=== PATIENT | male | born 1990 | race Caucasian/White ===

== ENCOUNTER 2020-05-02 19:31 | Emergency (ER) | payer OTHER, SELFPAY ==
--- NOTE | ~2020-05-02 | XR_ITS ---
XR ankle LT min 3V, XR tibia fibula LT 2V 05/02/2020 20:23 (accession [id number]), 05/02/2020 20:22 (accession [id number]) INDICATION: Left leg and ankle pain PROCEDURE: 2 views left tibia/fibula and 4 views left ankle COMPARISON: No prior studies for comparison. FINDINGS: Fracture, dislocation or subluxation is not identified. The soft tissues appear within norm al limits. No foreign bodies are identified. IMPRESSION: 1: NO ACUTE BONE OR JOINT ABNORMALITY IDENTIFIED. Reviewed, dictated and finalized at location A. IMPRESSION: 1: NO ACUTE BONE OR JOINT ABNORMALITY IDENTIFIED.
[2020-05-02 19:33] VITALS: BP 124/77; PULSE 92; RESP 18; TEMP 36.8; O2SAT 100
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
[2020-05-02 21:47] VITALS: BP 120/78; PULSE 88; RESP 20; O2SAT 100
[2020-05-02] MEDS: traMADol HCL 50 MG TABLET PO (21:51)
== END 2020-05-02 22:07 | disposition home or self-care (01) ==
PROVIDERS: Emergency Provider Family Medicine; PCP Pediatrics
DX: S86.012A Strain of left Achilles tendon, initial encounter (principal); X50.9XXA Other and unspecified overexertion or strenuous movements or postures, initial encounter; Y93.66 Activity, soccer
CPT/HCPCS: 29515; 73590; 73610; 99284; A9270

== ENCOUNTER 2020-05-05 00:49 | Outpatient (CLI) | payer OTHER, SELFPAY ==
[2020-05-05 18:52] LABS: SARS-CoV-2 RNA PCR Negative
== END 2020-05-05 00:50 | disposition home or self-care (01) ==
LOC: ANHCOVIDDT 00:50
PROVIDERS: PCP Pediatrics; Visit Provider Orthopaedic Surgery
DX: Z01.812 Encounter for preprocedural laboratory examination (principal); Z11.59 Encounter for screening for other viral diseases
CPT/HCPCS: 87635; C9803; U0003

== ENCOUNTER 2020-05-06 02:07 | Day surgery (SDC) | payer OTHER, SELFPAY ==
[2020-05-04 15:18] VITALS: BMI 24.8
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
[2020-05-06] VITALS (8 sets, daily range): BP systolic 118–134; BP diastolic 63–74; PULSE 55–66; RESP 12–20; TEMP 36.1–36.3; O2SAT 100
--- NOTE | 2020-05-06 06:47 | WPDHPUPDATE1 ---
History and Physical Update Update Date/Time: 05/06/20 06:47 History and Physical has been reviewed, including an updated exam of the patient. There are NO changes in the patient's condition. Covid test negative Risks, benefits, and alternatives have been discussed and questions answered. Patient agrees to proceed with procedure.
[2020-05-06] MEDS: LACTATED RINGERS 1,000 ML 30 ML IV CONT (08:15)
[2020-05-06] MEDS: ACETAMINOPHEN 500 MG TABLET 1000 MG PO (08:20)
[2020-05-06] MEDS: KETOROLAC 15 MG/ML VIAL (*BKC) IV PUSH (08:22)
--- NOTE | 2020-05-06 10:10 | SUR.PREOP ---
PT INFORMED ABOUT SURGICAL DELAY ON ARRIVAL
[2020-05-06] MEDS: ceFAZolin 2 GM/D5W 50 ML 2 GM/50 ML BAG IVPB (10:44)
--- NOTE | 2020-05-06 12:58 | PM.PROC ---
Procedure Note - Detailed Date of procedure: 05/06/20 Pre-op diagnosis: Left Achilles Tendon Rupture Post-op diagnosis: same Procedure performed: Repair left Achilles tendon rupture Description of procedure: Indications: Patient is a 29-year-old gentleman with a left Achilles tendon rupture. Desires operative treatment. What was done: Patient identified in the preoperative holding. Informed consent given. Operative extremity marked. Patient received intravenous antibiotics. Patient brought to the operating room where underwent general anesthetic by anesthesia team. Positioned prone on operating room table. Care taken to carefully pad the bony prominences and the down side. Head and neck secured while turning and after positioning. Time-out performed confirming the patient, site of the surgery and the plan. Left lower extremity prepped draped usual sterile surgical fashion using a ChloraPrep skin solution. The Achilles tendon rupture could be palpated. At this level a horizontal incision was made with 15 blade knife. Hemostasis controlled electrocautery. The paratenon was incised in line with the skin incision. We then able to visualize the Achilles tendon rupture. Proximally there was good tendon material. Distally there was quite a bit of disruption of the tendon in adequate to hold suture. Decision was made to perform a distal repaired at the calcaneus. Proximally the suture tape was passed through the proximal Achilles tendon using the Arthrex Achilles tendon repair jag. These were then pulled out through the incision. These were then passed with soft tissue passers to the medial lateral aspect of the calcaneal tuberosity and then anchored into the tuberosity with 4.75 mm swivel locks. The foot was placed into neutral position correct tension was ensured at the time of repair. Stress was then placed on the ankle and the repair noted to be stable. Wounds thoroughly irrigated antibiotic solution. Repair of the direct tendon ends was done with 3 Monocryl Sineff suture. The paratenon repaired with 3 0 Monocryl interrupted suture and the subcutaneous tissue repaired with 3 Monocryl running suture. Local anesthetic with 0.5% Marcaine plain. Sterile dressing and splint applied. The patient was then woken from anesthesia, extubated and taken to the recovery room in stable condition. All sponge, needle, instrument counts were correct at the end of the case. Anesthesia: GETA Surgeon: Jackson Lay MD Drug Safety Coordinator: accounting manager assistant controller Estimated blood loss (mL): 25 Tourniquet time (min): 0 Drains: No Packing: No Pathology: none sent Complications: None Condition: stable Disposition: PACU
== END 2020-05-06 14:58 | disposition home or self-care (01) ==
PROVIDERS: PCP Nurse Practitioner Adult Health; Visit Provider Orthopaedic Surgery
PROC: (CPT 27650; principal; 2020-05-06 10:00)
DX: S86.012A Strain of left Achilles tendon, initial encounter (principal); X50.0XXA Overexertion from strenuous movement or load, initial encounter; Y93.66 Activity, soccer; G47.33 Obstructive sleep apnea (adult) (pediatric); Z86.73 Personal history of transient ischemic attack (TIA), and cerebral infarction without residual deficits
CPT/HCPCS: 27650; A9270; J0330; J0690; J1100; J1885; J2001; J2250; J2704; J3010; J7120

== ENCOUNTER 2025-07-05 16:38 | Emergency (ER) | payer BC, SELFPAY ==
--- NOTE | ~2025-07-05 | XR_ITS ---
EXAMINATION: XR finger 3rd LT min 2V, 07/05/2025 17:25 CDT HISTORY: lac, crush inj to tip of 3rd digit COMPARISON: No comparisons available. Findings: No acute fracture or malalignment. No significant degenerative changes. Soft tissues unremarkable. Impression: No acute fracture or malalignment. Reviewed, dictated and finalized at location P. Impression: No acute fracture or malalignment.
[2025-07-05 16:41] VITALS: BP 142/100; PULSE 71; RESP 18; TEMP 36.5; O2SAT 100
[2025-07-05] MEDS: TETANUS,DIPHTHERIA,AC PERTUSSIS ADULT (0.5 ML) BOOSTRIX IM (17:36)
[2025-07-05] MEDS: LIDOCAINE 1% LOCAL INJ 20 ML VIAL 10 ML INFILTRATE (17:36)
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
[2025-07-05] MEDS: CEPHALEXIN 500 MG CAPSULE PO (18:27)
[2025-07-05 19:09] VITALS: BP 124/81; PULSE 76; RESP 16; TEMP 36.4; O2SAT 98
== END 2025-07-05 19:13 | disposition home or self-care (01) ==
PROVIDERS: Emergency Provider Physician Assistant; PCP Nurse Practitioner Adult Health
DX: S61.213A Laceration without foreign body of left middle finger without damage to nail, initial encounter (principal); G47.30 Sleep apnea, unspecified; Z86.73 Personal history of transient ischemic attack (TIA), and cerebral infarction without residual deficits; Z23 Encounter for immunization
CPT/HCPCS: 12001; 73140; 90471; 90715; 99283; A9270; J2003